=== PATIENT | female | born 2000 | race Caucasian/White ===

== ENCOUNTER 2020-04-01 10:36 | Outpatient (CLI) | payer OTHER, SELFPAY ==
[2020-04-02 14:58] LABS: SARS-CoV-2 RNA PCR Negative
== END 2020-04-01 10:37 | disposition home or self-care (01) ==
PROVIDERS: PCP Family Medicine; Visit Provider Family Medicine
DX: Z20.828 Contact with and (suspected) exposure to other viral communicable diseases (principal)
CPT/HCPCS: 87635; C9803; U0003

== ENCOUNTER → 2021-06-06 08:35 | Outpatient (CLI) | payer OTHER, SELFPAY ==
--- NOTE | ~2021-06-06 | XR_ITS ---
EXAMINATION: XR foot LT min 3V DATE: 06/06/2021 09:14 INDICATION: Left foot pain TECHNIQUE: Dorsoplantar, lateral, and 2 oblique views of the left foot were obtained. COMPARISON: None. FINDINGS: There is no fracture, dislocation, or subluxation. The bones, soft tissues, and joint space s are normal. IMPRESSION: 1. No acute osseous abnormality. Reviewed, dictated and finalized at location A.
== END ==
PROVIDERS: PCP Family Medicine; Visit Provider Nurse Practitioner Family
DX: M79.672 Pain in left foot (principal); S99.922A Unspecified injury of left foot, initial encounter
CPT/HCPCS: 73630

== ENCOUNTER → 2021-08-19 09:04 | Outpatient (CLI) | payer OTHER, SELFPAY ==
[2021-08-19 22:40] LABS: SARS-CoV-2 RNA PCR Positive
== END ==
PROVIDERS: PCP Family Medicine; Visit Provider Nurse Practitioner Family
DX: U07.1 COVID-19 (principal)
CPT/HCPCS: C9803; U0003; U0005

== ENCOUNTER 2021-11-11 06:14 | Emergency (ER) | payer OTHER, SELFPAY ==
--- NOTE | ~2021-11-11 | XR_ITS ---
EXAMINATION: XR chest 2V DATE: 11/11/2021 06:27 INDICATION: Chest pain TECHNIQUE: PA and lateral views of the chest are obtained. COMPARISON: None available FINDINGS: The lungs are free of acute opacities. There is no pleural effusion or pneumothorax. The ca rdiomediastinal silhouette is normal. The visualized bones and soft tissues are unremarkable. IMPRESSION: 1. No acute cardiopulmonary abnormality. Reviewed, dictated and finalized at location A.
[2021-11-11 06:16] VITALS: BP 139/84; PULSE 78; RESP 18; TEMP 37; O2SAT 100
--- NOTE | 2021-11-11 06:19 | ECG_ITS ---
Measurements Intervals [place] Rate: 86 P: 32 MO: 148 QRS: 26 QRSD: 82 T: 30 QT: 334 QTc: 401 Interpretive Statements SINUS RHYTHM WITH MARKED SINUS ARRHYTHMIA BASELINE ARTIFACT NORMAL ECG NO PREVIOUS ECG AVAILABLE FOR COMPARISON Electronically Signed On 11-11-2021 16:54:05 CDT by Christiano Kwan M.D.
[2021-11-11 06:28] VITALS: BP 132/98; PULSE 91; RESP 22; TEMP 36.8; O2SAT 100
[2021-11-11 06:41] LABS: Basophils Absolute Auto 0.1 K/mm3 (0.0-0.1); Basophils Percent Auto 0.6 % (0.2-1.2); Eosinophils Absolute Auto 0.1 K/mm3 (0-0.3); Eosinophils Percent Auto 0.9 % (0-4.4); Hemoglobin 12.1 g/dL (12.0-15.0); Immature Granulocyte Absolute 0.02 K/mm3 (0.00-0.031); Immature Granulocyte Percent A 0.2 % (0-0.5); Lymphocytes Absolute Auto 1.65 K/mm3 (0.9-3.2); Lymphocytes Percent Auto 19.2 % (18.3-44.2); Mean Corpuscular HGB Conc 31.8 g/dl (32-36); Mean Corpuscular Hemoglobin 28.3 pg (26-34); Mean Corpuscular Volume 88.8 fl (80-100); Mean Platelet Volume 10.9 fl (7.4-10.4); Monocytes Absolute Auto 0.5 K/mm3 (0.1-0.6); Neutrophils Absolute Auto 6.3 K/mm3 (1.3-6.7); Neutrophils Percent Auto 73.1 % (45.5-73.1); Platelet Count Result 328 k/mm3 (150-375); Red Blood Count 4.28 M/mm3 (4.2-5.4); Red Cell Distribution Width 12.6 % (11.5-14.5); White Blood Count 8.6 K/mm3 (4.5-10.0)
[2021-11-11] MEDS: ASPIRIN 81 MG CHEWABLE TABLET 324 MG PO (06:43)
[2021-11-11 06:54] LABS: INR 1.1; Prothrombin Time 13.5 Seconds (11.1-14.7)
[2021-11-11 06:55] LABS: Partial Thromboplastin Time 28.6 SECONDS (22.3-36.8)
[2021-11-11 06:59] LABS: Alanine Aminotransferase 12 U/L (4-35); Albumin Level 4.3 g/dL (3.5-5.1); Alkaline Phosphatase 58 U/L (38-126); Anion Gap 8 mmol/L (8-16); Aspartate Amino Transferase 19 U/L (14-36); Bilirubin,Total 0.4 mg/dL (0.2-1.3); Blood Urea Nitrogen 8 mg/dL (7-17); Carbon Dioxide 25 mmol/L (22-30); Chloride 104 mmol/L (98-107); Estimated CRCL calculation 122 ml/min; Estimated Glomerular Filt Rate > 60; Glucose 102 mg/dL (65-110); Lipase 97 U/L (23-300); Potassium 3.8 mmol/L (3.4-5.0); Sodium 137 mmol/L (137-145)
[2021-11-11 07:11] LABS: Troponin I < 0.012 ng/mL (0.000-0.034)
--- NOTE | 2021-11-11 07:16 | ED.CHESTPAIN ---
HPI - Chest Pain General Chief Complaint: Chest Pain Stated Complaint: chest pain, sob Time Seen by Provider: 11/11/21 06:55 History of Present Illness HPI narrative: 21-year-old female presents secondary some atypical chest pain. Patient donated blood yesterday and after she got home she states she is feeling a little weak. This is a second time she donated blood. She had no syncopal episode. She went to bed last night and she states that she was sleeping on her stomach and woke up and had some discomfort in the midportion of her chest. The like a burning type sensation. She states that it eventually subsided and she was able to go back to sleep. She went to work this morning and still was not feeling completely back to normal and subsequently came to the [facility] for evaluation. She can no history of any cardiac abnormalities. She has no history of any exertional chest pain or dyspnea. Denies any history of reflux type symptoms. No family history of premature cardiac abnormalities. MD complaint: chest pain Related Data Home Medications Medication Instructions Recorded Confirmed levonorgestrel-ethinyl estradiol 1 tablet PO DAILY 07/11/21 07/11/21 0.1 mg-20 mcg tablet Allergies Allergy/AdvReac Type Severity Reaction Status Date / Time No Known Allergies Allergy Verified 11/11/21 06:19 Review of Systems Review of Systems: CONSTITUTIONAL: Denies fever, chills, or sweats. EYES: Denies visual changes, redness, or discharge. ENT: Denies rhinorrhea, congestion, sore throat, or otalgia. CARDIOVASCULAR: Denies palpitations, or edema. RESPIRATORY: Denies cough or dyspnea. GASTROINTESTINAL: Denies abdominal pain, nausea, vomiting, or diarrhea. GENITOURINARY: Denies dysuria or hematuria. SKIN: Denies rash or itching. MUSCULOSKELETAL: Denies back pain, joint pain, or myalgia. NEUROLOGIC: Denies headache, numbness, or weakness. PSYCHIATRIC: Denies anxiety or depression. [facility] Past Medical History Medical History BMI 35.0-35.9,adult Dietary counseling and surveillance (03/27/17) Encounter for general adult medical examination without abnormal findings Family History Family History Father Hypertension Mother Diabetes mellitus Sibling No problems noted. Social History Social History Tobacco type: e-cigarettes/vaping Second hand tobacco smoke exposure: No Alcohol intake: current Substance use: never Substance use type: does not use Additional occupation/education comments: [employer] Gender identity (if verbalized by the patient): Female Exam Narrative: APPEARANCE: Well appearing, no pain in distress, well-nourished. Head normocephalic atraumtaic. EYES: PERRLA/EOMI, conjunctivae very clear. NOSE: Normal no drainage EARS:TMS clear Nadir Larkin, with good light reflex. THROAT: Pharynx clear, no exudate. NECK: Supple. No adenopathy, no masses. RESPIRATORY: Airway patent, repsirations nonlabored. Clear to auscultation bilaterally, no rales, rhonchi, wheezing. CARDIOVASCULAR: Regular rate and rhythm without murmurs rubs or gallops. ABDOMINAL: Soft, nondistended, no hepatosplenomegally. Some mild epigastric tenderness to palpation MUSCULOSKELETAl: Moves all extremities. Strenght/ROM intact, No edema, No calf tenderness. NEURO: Alert. Cranial nerves II through XII intact. Good gait. Good coordination SKIN:: Warm, dry. Normal Color PSYCHIATRIC: Normal affect/mood, normal interaction with parents. Course Course Emergency Course: Patient had no additional probably complications while she was in emergency department. Work-up and evaluation was completely unremarkable this was all reviewed with the patient. She states she is actually feeling better at this time would like to go home and get something to eat. Vital Signs Vital signs: Vital Sign
[2021-11-11] MEDS: BELLADONNA ALK/PHENOB ELIX 10 ML, MAG HYDROX/ALUMINUM HYD/SIMETH 30 ML, LIDOCAINE HCL 2... PO (07:19)
== END 2021-11-11 09:28 | disposition home or self-care (01) ==
PROVIDERS: Emergency Medicine; Emergency Provider Emergency Medicine; PCP Family Medicine
DX: R07.89 Other chest pain (principal); F17.290 Nicotine dependence, other tobacco product, uncomplicated
CPT/HCPCS: 36415; 71046; 80053; 83690; 84484; 85025; 85610; 85730; 93005; 99284; A9270

== ENCOUNTER 2021-12-26 15:59 | Emergency (ER) | payer OTHER, SELFPAY ==
--- NOTE | ~2021-12-26 | XR_ITS ---
XR ankle LT min 3V 12/26/2021 16:32 INDICATION: Left ankle pain PROCEDURE: 4 views left ankle COMPARISON: No prior studies for comparison. FINDINGS: Fracture, dislocation or subluxation is not identified. Ankle mortise intact. There is late ral soft tissue swelling. Talar dome within normal limits. Mild lateral soft tissue swelling. No for eign bodies are identified. IMPRESSION: 1: NO ACUTE BONE OR JOINT ABNORMALITY IDENTIFIED. Reviewed, dictated and finalized at location A.
[2021-12-26 16:18] VITALS: BP 122/90; PULSE 114; RESP 16; TEMP 36.6; O2SAT 99
--- NOTE | 2021-12-26 18:31 | ED.LOWEXIN ---
HPI - Extremity Injury (Lower) General Chief Complaint: Extremity Injury, Lower Stated Complaint: left ankle injury Time Seen by Provider: 12/26/21 18:07 Source: patient Mode of arrival: ambulatory Limitations: no limitations History of Present Illness HPI Narrative: Patient is a 21 y/o female who presents to the ED with c/o left ankle pain. Patient reports that she was walking down wooden steps just prior to arrival when the wooden step broke causing her to roll her ankle. She sustained an inversion injury to her left ankle and complains of pain and swelling to her lateral left ankle. She has been able to ambulate but has pain with this. Denies any numbness, tingling, weakness. No other injuries. No head injury, loss of consciousness. Related Data Home Medications Medication Instructions Recorded Confirmed levonorgestrel-ethinyl estradiol 1 tablet PO DAILY 07/11/21 12/21/21 0.1 mg-20 mcg tablet Allergies Allergy/AdvReac Type Severity Reaction Status Date / Time No Known Allergies Allergy Verified 12/21/21 07:59 Review of Systems Review of Systems: CONSTITUTIONAL: Denies fever. GASTROINTESTINAL: Denies abdominal pain. SKIN: Reports swelling to L lateral ankle. MUSCULOSKELETAL: Reports L lateral ankle pain. Denies back pain. NEUROLOGIC: Denies HI, LOC, tingling, numbness, or weakness. All systems reviewed & are unremarkable except as noted in HPI and below PMFSH Past Medical History Medical History (Updated 12/26/21 @ 18:44 by Maura Lechuga PA-C) BMI 32.0-32.9,adult BMI 35.0-35.9,adult BMI greater than 30 Dietary counseling and surveillance (03/27/17) Encounter for general adult medical examination without abnormal findings Surgical History Surgical History (Updated 12/26/21 @ 18:38 by Maura Lechuga PA-C) No pertinent past surgical history Family History Family History Father Hypertension Mother Diabetes mellitus Sibling Migraine Social History Social History Tobacco type: e-cigarettes/vaping Second hand tobacco smoke exposure: No Alcohol intake: current Substance use: never Substance use type: does not use Additional occupation/education comments: [employer] Gender identity (if verbalized by the patient): Female Exam Narrative: GENERAL: Well appearing, well-nourished, non-toxic, in no acute distress. HEAD: Normocephalic, atraumatic. NECK: Supple. No adenopathy, no masses. RESPIRATORY: Airway patent, respirations nonlabored. CARDIOVASCULAR: Regular rate and rhythm without murmurs, rubs, or gallops. Peripheral pulses 2+ and equal bilaterally. MUSCULOSKELETAL: Moves all extremities. Strength/ROM intact without gross deformities. TTP of L lateral malleolus inferiorly and posteriorly. Mild diffuse swelling of lateral malleolus. Minor ecchymosis forming below lateral malleolus. No TTP of L metatarsals. No TTP in L knee. Sensation intact in LLE. SKIN: Warm, dry, normal color. No rashes. NEURO: A&O X3. Speech clear. Cranial nerves II-XII grossly intact. Steady gait. No ataxic movements. PSYCHIATRIC: Appropriate mood and affect. Normal interaction. Course Vital Signs Vital signs: Vital Signs Temperature 97.8 F 12/26/21 16:18 Pulse Rate 114 H 12/26/21 16:18 Respiratory Rate 16 12/26/21 16:18 Blood Pressure 122/90 12/26/21 16:18 Pulse Oximetry 99 12/26/21 16:18 Temperature 97.8 F 12/26/21 16:18 Pulse Rate 114 H 12/26/21 16:18 Respiratory Rate 16 12/26/21 16:18 Blood Pressure 122/90 12/26/21 16:18 Pulse Oximetry 99 12/26/21 16:18 MDM - Extremity Injury (Lower) MDM Narrative Medical decision making narrative: Patient presented to ED with report of left lateral ankle pain status post inversion injury that occurred just prior to arrival. Vital signs stable upon arrival, patient mildly tachycardic, likely due to pain. Patient
== END 2021-12-26 19:12 | disposition home or self-care (01) ==
PROVIDERS: Emergency Provider Emergency Medicine; PCP Family Medicine
DX: S93.402A Sprain of unspecified ligament of left ankle, initial encounter (principal); F17.290 Nicotine dependence, other tobacco product, uncomplicated; X50.1XXA Overexertion from prolonged static or awkward postures, initial encounter
CPT/HCPCS: 73610; 99283

== ENCOUNTER 2022-01-02 14:11 | Outpatient (CLI) | payer OTHER, SELFPAY ==
--- NOTE | ~2022-01-02 | XR_ITS ---
EXAMINATION: XR ankle LT 2V, XR foot LT 2V DATE: 01/02/2022 14:31 INDICATION: Left foot and ankle sprain presenting with lateral sided pain and swelling TECHNIQUE: 1. Anteroposterior and lateral view of the left ankle were obtained. 2. Dorsoplantar and lateral views of the left foot were obtained. COMPARISON: 12/26/2021 FINDINGS: Alignment of the left foot and ankle is normal. No fracture. Joint spaces are well maintained. Soft t issue swelling about the lateral malleolus. Large left ankle joint effusion with increased density an terior to the tibiotalar joint line. IMPRESSION: 1. Left ankle joint effusion. No acute osseous abnormality at the left foot or ankle. Reviewed, dictated and finalized at location B. IMPRESSION: 1. Left ankle joint effusion. No acute osseous abnormality at the left foot or ankle.
== END 2022-01-02 14:12 ==
LOC: MICIMG 14:14
PROVIDERS: PCP Family Medicine; Visit Provider Nurse Practitioner Family
DX: M25.472 Effusion, left ankle (principal); M25.572 Pain in left ankle and joints of left foot
CPT/HCPCS: 73600; 73620

== ENCOUNTER 2022-11-03 12:20 | Emergency (ER) | payer OTHER, SELFPAY ==
[2022-11-03 12:28] VITALS: BP 134/63; PULSE 77; RESP 20; TEMP 37; O2SAT 100
--- NOTE | 2022-11-03 12:37 | ED.SKABFB ---
HPI - Skin/Abscess/Foreign Bdy General Chief complaint: Skin/Abscess/Foreign Body Stated complaint: Rash on right shoulder History of Present Illness HPI narrative: PRESENTSWITH RASH TO RIGHT SIDE OF NECK PATIENT NOTICED IT SEVERAL DAYS AGO ITCHES AT TIMES DRY FLAKY AREAS TO LEFT SIDE OF NECK Related Data Home Medications Medication Instructions Recorded Confirmed levonorgestrel-ethinyl estradiol 1 tablet PO DAILY 07/11/21 11/03/22 0.1 mg-20 mcg tablet Allergies Allergy/AdvReac Type Severity Reaction Status Date / Time No Known Allergies Allergy Verified 11/03/22 12:35 Review of Systems Review of Systems: CONSTITUTIONAL: DENIES FEVER, CHILLS, OR SWEATS. EYES: DENIES VISUAL CHANGES, REDNESS, OR DISCHARGE. ENT: DENIES RHINORRHEA, CONGESTION, SORE THROAT, OR OTALGIA. CARDIOVASCULAR: DENIES CHEST PAIN, PALPITATIONS, OR EDEMA. RESPIRATORY: DENIES COUGH OR DYSPNEA. GASTROINTESTINAL: DENIES ABDOMINAL PAIN, NAUSEA, VOMITING, OR DIARRHEA. GENITOURINARY: DENIES DYSURIA OR HEMATURIA. SKIN: DENIES RASH OR ITCHING. MUSCULOSKELETAL: DENIES BACK PAIN, JOINT PAIN, OR MYALGIA. NEUROLOGIC: DENIES HEADACHE, NUMBNESS, OR WEAKNESS. PSYCHIATRIC: DENIES ANXIETY OR DEPRESSION. [facility] Past Medical History Medical History (Updated 11/03/22 @ 12:41 by GIL Patiño) BMI 32.0-32.9,adult BMI 35.0-35.9,adult BMI greater than 30 Chest tightness Dietary counseling and surveillance (03/27/17) Encounter for general adult medical examination without abnormal findings Hearing loss Surgical History Surgical History (Updated 02/06/22 @ 14:57 by Elsi Crawley) H/O eye surgery Right eye 2001 Family History Family History Father Hypertension Mother Diabetes mellitus Sibling Migraine Social History Social History (Updated 02/06/22 @ 14:57 by Elsi Crawley) Smoking status: Current every day smoker Tobacco type: e-cigarettes/vaping Second hand tobacco smoke exposure: No Alcohol intake: unknown Substance use: never Substance use type: does not use Living arrangements: with family Occupation/Education: occupation Additional occupation/education comments: [employer] Gender identity (if verbalized by the patient): Female Comments AT TIME OF SIGNATURE, AGREE WITH NURSING PAST MEDICAL, SURGICAL, SOCIAL AND FAMILY HISTORY. THERE IS NO RELEVANT FAMILY HISTORY PERTINENT TO THE PRESENTING COMPLAINT Exam Narrative: GENERAL: WELL-APPEARING, WELL-NOURISHED, AND IN NO ACUTE DISTRESS. HEAD: NORMOCEPHALIC, ATRAUMATIC. EYES: PERRLA AND EOMI. ENT: NARES CLEAR, NO RHINORRHEA OR EPISTAXIS. MUCOUS MEMBRANES MOIST. NECK: SUPPLE. CHEST: CLEAR TO AUSCULTATION. NO RESPIRATORY DISTRESS. HEART: REGULAR RATE AND RHYTHM. NO MURMUR HEARD. NORMAL PERIPHERAL PULSES. ABDOMEN: SOFT, NONTENDER, NONDISTENDED, NORMAL ACTIVE BOWEL SOUNDS. EXTREMITIES: NORMAL RANGE OF MOTION. NO EDEMA. SKIN: WARM, DRY, FLAT DRY FLAKY AREAS ,MULTIPLE IN VARIOUS SIZES AND SHAPES CONSISTENT WITH FUNGAL DERMATITIS NEURO: NO FOCAL DEFICITS. ALERT AND ORIENTED X3. ALIZA COMA SCALE EYE OPENING: SPONTANEOUS 4 ALIZA COMA SCALE MOTOR: OBEYS COMMANDS 6 ALIZA COMA SCALE VERBAL: ORIENTED 5 ALIZA COMA SCALE TOTAL 15 Course Course Level of Care: Express Care Visit Vital Signs Vital signs: Vital Signs Temperature 37.0 C 11/03/22 12:28 Pulse Rate 77 11/03/22 12:28 Respiratory Rate 20 11/03/22 12:28 Blood Pressure 134/63 11/03/22 12:28 Pulse Oximetry 100 11/03/22 12:28 Oxygen Delivery Room Air 11/03/22 12:28 Temperature 37.0 C 11/03/22 12:28 Pulse Rate 77 11/03/22 12:28 Respiratory Rate 20 11/03/22 12:28 Blood Pressure 134/63 11/03/22 12:28 Pulse Oximetry 100 11/03/22 12:28 Oxygen Delivery Room Air 11/03/22 12:28 Discharge Plan Discharge Clinical Impression: Fungal dermatitis Patient Disposition: Home, Self-Care Condit
== END 2022-11-03 12:45 | disposition home or self-care (01) ==
PROVIDERS: Emergency Provider Nurse Practitioner Family; PCP Family Medicine
DX: B36.9 Superficial mycosis, unspecified (principal); F17.290 Nicotine dependence, other tobacco product, uncomplicated
CPT/HCPCS: 99213; G0463

== ENCOUNTER 2023-05-30 16:04 | Emergency (ER) | payer OTHER, SELFPAY ==
[2023-05-30 16:12] VITALS: BP 128/65; PULSE 94; RESP 16; TEMP 36.8; O2SAT 96
--- NOTE | 2023-05-30 16:16 | ED.GENADULT ---
HPI - General Adult General Chief complaint: Headache Stated complaint: Headache Time Seen by Provider: 05/30/23 16:15 Source: patient, RN notes reviewed and old records reviewed Mode of arrival: ambulatory Limitations: no limitations History of Present Illness HPI narrative: 23 year old female who presents to [facility] care with complaints of headache pain for the past 4 days which has increased in intensity over the past4 hours and worse above her left eye which is sharp at times. Patient denies any history of headaches or history of any migraines. Patient reports some photosensitivity, some nausea with no emesis, denies any symptoms of cough or sinus congestion or drainage., denies any vision changes or any neuro deficits. complaint: headache Onset (ago): day(s) (4) Location: head (frontal above left eye especially) Severity scale (1-10): 9 Quality: aching and sharp Pain Consistency: constant Treatments prior to arrival: NSAID Related Data Home Medications Medication Instructions Recorded Confirmed levonorgestrel-ethinyl estradiol 1 tablet PO DAILY 07/11/21 05/12/23 0.1 mg-20 mcg tablet Allergies Allergy/AdvReac Type Severity Reaction Status Date / Time No Known Allergies Allergy Verified 03/26/23 10:37 Review of Systems Review of Systems: CONSTITUTIONAL: Denies fever, chills, or sweats. EYES: Denies visual changes, redness, or discharge.photophobia ENT: Denies rhinorrhea, congestion, sore throat, or otalgia. CARDIOVASCULAR: Denies chest pain, palpitations, or edema. RESPIRATORY: Denies cough or dyspnea. GASTROINTESTINAL: Denies abdominal pain,positive for nausea,no vomiting, or diarrhea. GENITOURINARY: Denies dysuria or hematuria. SKIN: Denies rash or itching. MUSCULOSKELETAL: Denies back pain, joint pain, or myalgia. NEUROLOGIC: Positive for headache sharp especially to left forehead,no numbness, or weakness. PSYCHIATRIC: Denies anxiety or depression. All systems reviewed & are unremarkable except as noted in HPI and below PMFSH Past Medical History Medical History BMI 32.0-32.9,adult BMI 33.0-33.9,adult BMI 35.0-35.9,adult BMI greater than 30 Chest tightness Dietary counseling and surveillance (03/27/17) Encounter for general adult medical examination without abnormal findings Hearing loss Surgical History Surgical History H/O eye surgery Right eye 2001 Family History Family History Father Hypertension Mother Diabetes mellitus Sibling Migraine Social History Social History Smoking status: Current every day smoker Tobacco type: e-cigarettes/vaping Second hand tobacco smoke exposure: No Alcohol intake: current Substance use: never Substance use type: does not use Lack of Transportation: No Lack of Food: Never True Current Housing: I Have Housing Concerned About Future Housing: No Difficulty Paying Gas/Electric Bills: No Difficulty Paying for Meds: No Currently Unemployed: No Education: High School Diploma/GED Difficulty w/ Childcare or Family Care: No Living arrangements: with family Occupation/Education: occupation Additional occupation/education comments: [employer] Gender identity (if verbalized by the patient): Female Comments At time of signature, agree with nursing past medical, surgical, social and family history. There is no relevant family history pertinent to the presenting complaint Exam Narrative: GENERAL: Well-appearing, well-nourished, and in no acute distress. HEAD: Normocephalic, atraumatic. EYES: PERRLA and EOMI.photophobia ENT: Nares clear, no rhinorrhea or epistaxis. Mucous membranes moist.TM's normal throat pink with no lesions or exudates or swelling NECK: Supple.no lymphadenopathy, no
[2023-05-30] MEDS: KETOROLAC (*BKC) 60 MG/2 ML VIAL IM (16:28)
== END 2023-05-30 17:20 | disposition short-term general hospital (02) ==
PROVIDERS: Emergency Provider Registered Nurse; PCP Family Medicine
DX: R51.9 Headache, unspecified (principal); Z20.822 Contact with and (suspected) exposure to COVID-19; F17.290 Nicotine dependence, other tobacco product, uncomplicated
CPT/HCPCS: 87426; 87804; 96372; 99213; C9803; G0463; J1885

== ENCOUNTER 2023-05-30 17:58 | Emergency (ER) | payer OTHER, SELFPAY ==
[2023-05-30 17:58] VITALS: BP 132/75; PULSE 103; RESP 14; TEMP 36.9; O2SAT 99
--- NOTE | 2023-05-30 18:46 | PC.NURSE ---
On 05/30/23, the student, [NAMAN OLIVARES ], provided care and completed [facility] documentation on this patient. I have reviewed the student's documentation and agree with the findings.
[2023-05-30] MEDS: SODIUM CHLORIDE 0.9% IV 1,000 ML 999 ML IV CONT (19:00)
[2023-05-30] MEDS: METOCLOPRAMIDE HCL INJ 10 MG/2 ML VIAL IV PUSH (19:03)
[2023-05-30] MEDS: MORPHINE SULFATE (*CRX) 2 MG/ML INJ IV PUSH (19:03)
--- NOTE | 2023-05-30 19:06 | ED.HA ---
HPI - Headache General Chief Complaint: Headache Stated Complaint: headache Time Seen by Provider: 05/30/23 18:23 Source: patient and family Mode of arrival: ambulatory Limitations: no limitations History of Present Illness HPI Narrative: this is a 23-year-old female that is having headache and some throbbing behind her left eye with no nausea or vomiting headache is rated at about 8/10, with no chest pain no shortness of breath no fever chills no nuchal rigidity. Patient was seen at urgent care and received Toradol with minimal relief and was advised to present to the emergency department for further evaluation. MD elicited complaint: headache and migraine Onset description: gradually Location: left, frontal and occipital Severity: moderate Pain scale (0-10): 8 Quality & Timing: throbbing and pulsatile Related Data Home Medications Medication Instructions Recorded Confirmed levonorgestrel-ethinyl estradiol 1 tablet PO DAILY 07/11/21 05/12/23 0.1 mg-20 mcg tablet Allergies Allergy/AdvReac Type Severity Reaction Status Date / Time No Known Allergies Allergy Verified 03/26/23 10:37 Review of Systems Review of Systems: All systems reviewed & are unremarkable except as noted in HPI and below PMFSH Past Medical History Medical History BMI 32.0-32.9,adult BMI 33.0-33.9,adult BMI 35.0-35.9,adult BMI greater than 30 Chest tightness Dietary counseling and surveillance (03/27/17) Encounter for general adult medical examination without abnormal findings Hearing loss Surgical History Surgical History H/O eye surgery Right eye 2002 Family History Family History Father Hypertension Mother Diabetes mellitus Sibling Migraine Social History Social History Smoking status: Current every day smoker Tobacco type: e-cigarettes/vaping Second hand tobacco smoke exposure: No Alcohol intake: current Substance use: never Substance use type: does not use Lack of Transportation: No Lack of Food: Never True Current Housing: I Have Housing Concerned About Future Housing: No Difficulty Paying Gas/Electric Bills: No Difficulty Paying for Meds: No Currently Unemployed: No Education: High School Diploma/GED Difficulty w/ Childcare or Family Care: No Living arrangements: with family Occupation/Education: occupation Additional occupation/education comments: [employer] Gender identity (if verbalized by the patient): Female Exam Const: General: healthy appearing and no acute distress Nutritional Appearance: well nourished Orientation/consciousness: patient oriented x3 Limitations: no limitations HENMT: Head: normal to inspection Face and sinus: normal facial exam Eyes: Conjunctivae: conjunctivae normal Pupils: Equal, round and reactive pupils present Neck: Neck: normal visual inspection Chest: Chest palpation & inspection: normal inspection of the chest Resp: Effort & Inspection: normal respiratory effort Auscultation: clear to auscultation bilaterally Cardio: Rate: regular rate Rhythm: regular rhythm GI: GI Palp: Yes Soft to palpation Auscultation: normal bowel sounds Urinary Catheter: Urinary Catheter: patent and draining Back/Spine/Pelvis: Back: no CVA tenderness Skin: General skin exam: normal color Neuro: General: patient oriented x3 Cranial nerves: Yes Nystagmus not present Extrem: General: normal to inspection Psych: Mental Status: mental status grossly normal Affect: normal affect Course Course Emergency Course: Patient has improved, with some morphine and Reglan along with IV fluids and advised patient to follow with her primary care physician for further evaluation treatment. Vital Signs Vital signs: Vi
== END 2023-05-30 20:20 | disposition home or self-care (01) ==
PROVIDERS: Emergency Provider Emergency Medicine; PCP Family Medicine
DX: R51.9 Headache, unspecified (principal); F17.219 Nicotine dependence, cigarettes, with unspecified nicotine-induced disorders
CPT/HCPCS: 96361; 96374; 96375; 99284; J2270; J2765; J7030

== ENCOUNTER 2023-06-17 13:54 | Outpatient (CLI) | payer OTHER, SELFPAY ==
--- NOTE | ~2023-06-17 | US_ITS ---
EXAMINATION: US OB transvaginal DATE: 06/17/2023 14:22 INDICATION: First trimester dating TECHNIQUE: Real-time pelvic transabdominal and transvaginal ultrasound was performed. COMPARISON: None. FINDINGS: The uterus measures 8.0 x 5.2 x 6.2 cm. There is an intrauterine gestational sac. There is a 6 mm x 5 mm x 9 mm hypoechoic area adjacent to the gestational sac. A yolk sac is identified. heart motion is identified measuring 141 beats per minute (bpm) by M-mode Doppler. The crown r ump length measures 8 mm, which correlates with an estimated gestational age of 6 weeks and 5 day(s) (+/-) 4 day(s). The right ovary measures 3.0 x 2.2 x 3.3 cm. The left ovary measures 3.0 x 1.8 x 2.7 cm. There is nor mal vascular flow in the ovaries. There is no free fluid in the pelvis. IMPRESSION: 1. Live intrauterine with an estimated gestational age of 6 weeks and 5 day(s) (+/-) 4 day( s) and an estimated delivery date of 02/05/2024. 2. Small subchorionic hematoma. Reviewed, dictated and finalized at location L. DRY MACHINE TENDER IMPRESSION: 1. Live intrauterine with an estimated gestational age of 6 weeks and 5 day(s) (+/-) 4 day(s) and an estimated delivery date of 02/05/2024. 2. Small subchorionic hematoma.
== END 2023-06-17 13:55 ==
PROVIDERS: PCP Nurse Practitioner; Visit Provider Nurse Practitioner
DX: Z36.87 Encounter for antenatal screening for uncertain dates (principal)
CPT/HCPCS: 76817

== ENCOUNTER 2023-07-15 10:14 | Outpatient (CLI) | payer OTHER, SELFPAY ==
--- NOTE | ~2023-07-15 | US_ITS ---
EXAMINATION: US OB limited DATE: 07/15/2023 10:32 INDICATION: Follow-up subchorionic hematoma TECHNIQUE: Real-time transabdominal and transvaginal obstetric ultrasound. FINDINGS: No prior studies for comparison. The uterus measures 12 x 5.4 x 3.2 cm. There is an intrauterine gestational sac, with pole iden tified. The crown rump length measures 4.12 cm. No evidence for subchorionic hemorrhage on current s tudy. heart tones are identified measuring 174 BPM. IMPRESSION: 1. SL IUP with an EGA of 10 weeks, 5 days (EDC by ultrasound ultrasound of 02/05/2024). Appropriate in terval growth. 2: Interval resolution of subchorionic hematoma. Reviewed, dictated and finalized at location B. ERER ELECTRONIC IMPRESSION: 1. SL IUP with an EGA of 10 weeks, 5 days (EDC by ultrasound ultrasound of 02/04). Appropriate interval growth. 2: Interval resolution of subchorionic hematoma.
== END 2023-07-15 10:15 ==
PROVIDERS: PCP Advanced Practice Midwife; Visit Provider Advanced Practice Midwife
DX: O36.8910 Maternal care for other specified fetal problems, first trimester, not applicable or unspecified (principal); Z3A.10 10 weeks gestation of pregnancy
CPT/HCPCS: 76815

== ENCOUNTER 2023-07-22 07:29 | Emergency (ER) | payer OTHER, SELFPAY ==
[2023-07-22 07:42] VITALS: BP 122/76; PULSE 94; RESP 19; TEMP 36.6; O2SAT 100
--- NOTE | 2023-07-22 07:55 | ED.NAVMDI ---
HPI - Nausea/Vomiting/Diarrhea General Chief complaint: Nausea/Vomiting/Diarrhea Stated complaint: n/v 12 weeks . Time Seen by Provider: 07/22/23 07:38 History of Present Illness HPI Narrative: patient is a 23-year-old female who is 12 weeks in gestation who presents to the ER with nausea and vomiting. Patient has had persistent morning sickness during the 12 weeks of her . She is on Reglan at home and does not seem to be helping. 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 She was told if she cannot keep down food or water or that she should come to the ER. She is cared for by Dr. Sandoval hays. Patient is a . She reports 8 lb weight loss. Related Data Home Medications Medication Instructions Recorded Confirmed levonorgestrel-ethinyl estradiol 1 tablet PO DAILY 07/11/21 06/03/23 0.1 mg-20 mcg tablet Allergies Allergy/AdvReac Type Severity Reaction Status Date / Time No Known Allergies Allergy Verified 07/22/23 07:40 Review of Systems Review of Systems: All systems reviewed & are unremarkable except as noted in HPI and below Constitutional: Constitutional: Reports no additional constitutional complaints ENT: Reports system reviewed and no additional complaints, except as documented Cardiovascular: Cardiovascular: Reports no additional cardiovascular complaints Respiratory: Respiratory: Reports no additional respiratory complaints Gastrointestinal: Gastrointestinal: Denies abdominal pain, Denies diarrhea, Reports nausea and Reports vomiting Genitourinary: Genitourinary: Reports no additional female genitourinary complaints Musculoskeletal: Musculoskeletal: Reports no additional musculoskeletal complaints [facility] Past Medical History Medical History BMI 32.0-32.9,adult BMI 33.0-33.9,adult BMI 35.0-35.9,adult BMI greater than 30 Chest tightness Dietary counseling and surveillance (03/27/17) Encounter for general adult medical examination without abnormal findings Hearing loss Surgical History Surgical History H/O eye surgery Right eye 2001 Family History Family History Father Hypertension Mother Diabetes mellitus Sibling Migraine Social History Social History (Reviewed 06/03/23 @ 12:51 by SANDY Villegas Smoking status: Current every day smoker Tobacco type: e-cigarettes/vaping Second hand tobacco smoke exposure: No Alcohol intake: current Substance use: never Substance use type: does not use Lack of Transportation: No Lack of Food: Never True Current Housing: I Have Housing Concerned About Future Housing: No Difficulty Paying Gas/Electric Bills: No Difficulty Paying for Meds: No Currently Unemployed: No Education: High School Diploma/GED Difficulty w/ Childcare or Family Care: No Living arrangements: with family Occupation/Education: occupation Additional occupation/education comments: [employer] Gender identity (if verbalized by the patient): Female Exam Narrative: GENERAL: Well-appearing, well-nourished, and in no acute distress. HEAD: Normocephalic, atraumatic. ENT: Mucous membranes moist. NECK: Supple. CHEST: Clear to auscultation. No respiratory distress. HEART: Regular rate and rhythm. Normal peripheral pulses. ABDOMEN: Soft, nontender, nondistended. EXTREMITIES: Normal range of motion. No edema. NEURO: Alert and oriented x3. PSYCH: Normal mood and affect. Course Course Emergency Course: Patient feels improved with Zofran and is resting comfortably. Blood work reassuring but urinalysis with persistent infection. Discussed with Dr. Grijalva. She would like the patient to receive some IV ceftriaxone and then follow-up in 2 days for a weight check in ketone check. Patient is also to be discharg
[2023-07-22] MEDS: SODIUM CHLORIDE 0.9% IV 1,000 ML 999 ML IV CONT (08:14)
[2023-07-22] MEDS: ONDANSETRON INJ 4 MG/2 ML VIAL IV PUSH (08:15)
[2023-07-22 08:20] VITALS: BP 119/89; PULSE 73; RESP 19; O2SAT 100
[2023-07-22 08:29] LABS: Basophils Percent Auto 0.4 % (0.2-1.2); Eosinophils Absolute Auto 0.1 K/mm3 (0-0.3); Eosinophils Percent Auto 0.6 % (0-4.4); Immature Granulocyte Absolute 0.04 K/mm3 (0.00-0.031); Immature Granulocyte Percent A 0.4 % (0-0.5); Lymphocytes Absolute Auto 1.15 K/mm3 (0.9-3.2); Mean Corpuscular HGB Conc 33.3 g/dl (32-36); Mean Corpuscular Hemoglobin 28.1 pg (26-34); Mean Corpuscular Volume 84.2 fl (80-100); Mean Platelet Volume 10.5 fl (7.4-10.4); Monocytes Absolute Auto 0.5 K/mm3 (0.1-0.6); Neutrophils Absolute Auto 7.8 K/mm3 (1.3-6.7); Neutrophils Percent Auto 81.6 % (45.5-73.1); Platelet Count Result 290 k/mm3 (150-375); Red Blood Count 4.63 M/mm3 (4.2-5.4); Red Cell Distribution Width 12.7 % (11.5-14.5); White Blood Count 9.6 K/mm3 (4.5-10.0)
[2023-07-22 08:40] LABS: Alanine Aminotransferase 11 U/L (6-35); Albumin Level 4.4 g/dL (3.5-5.1); Alkaline Phosphatase 59 U/L (38-126); Anion Gap 8 mmol/L (8-16); Aspartate Amino Transferase 21 U/L (14-36); Bilirubin,Total 0.5 mg/dL (0.2-1.3); Blood Urea Nitrogen 6 mg/dL (7-17); Calcium 9.8 mg/dL (8.4-10.2); Carbon Dioxide 24 mmol/L (22-30); Chloride 104 mmol/L (98-107); Estimated CRCL calculation 134 ml/min; Estimated Glomerular Filt Rate > 60; Glucose 92 mg/dL (65-110); Potassium 3.7 mmol/L (3.4-5.0); Sodium 136 mmol/L (137-145)
[2023-07-22 09:07] VITALS: BP 106/72; PULSE 73; RESP 18; O2SAT 100
[2023-07-22 09:30] LABS: Amorphous Sediment Urine Present; Appearance Urine Turbid (Clear); Bacteria Urine 4+ /hpf; Bilirubin Urine 2+ (Negative); Blood Urine 1+ (Negative); Color Urine Dark Yellow (Yellow); Glucose Urine UA Negative (Negative); Hyaline Casts Urine Present /lpf; Ketones Urine 3+ mg/dL (Negative); Leukocyte Esterase Ur 1+ LEU/UL (Negative); Mucus Urine Present /lpf; Need Manual Microscopic Reviewed; Nitrate Urine Negative (Negative); Protein Urine 2+ mg/dL (Negative); RBC Urine 51-100 /hpf (0-2); Specific Grav Ur 1.029 (1.001-1.035); Squamous Epithelial Cell Urine Moderate /hpf (Few); WBC Urine 21-50 /hpf
[2023-07-22 09:33] LABS: Add Urine Microscopic? YES
[2023-07-22 09:59] VITALS: BP 102/62; PULSE 74; RESP 18; O2SAT 99
== END 2023-07-22 10:14 | disposition home or self-care (01) ==
PROVIDERS: Emergency Provider Emergency Medicine; PCP Advanced Practice Midwife
DX: O23.41 Unspecified infection of urinary tract in pregnancy, first trimester (principal); N39.0 Urinary tract infection, site not specified; O21.0 Mild hyperemesis gravidarum; O99.331 Smoking (tobacco) complicating pregnancy, first trimester; F17.290 Nicotine dependence, other tobacco product, uncomplicated; Z3A.12 12 weeks gestation of pregnancy
CPT/HCPCS: 36415; 80053; 81001; 85025; 87086; 87088; 96361; 96374; 96375; 99284; J0696; J2405; J7030

== ENCOUNTER 2023-09-10 09:44 | Outpatient (CLI) | payer OTHER, SELFPAY ==
--- NOTE | ~2023-09-10 | US_ITS ---
EXAMINATION: US OB /maternal detail DATE: 09/10/2023 10:30 INDICATION: anatomic survey. TECHNIQUE: Real-time ultrasound of the pelvis was performed. COMPARISON: Ultrasound 07/15/2023, 06/17/2023 FINDINGS: There is a single living fetus in vertex presentation. The placenta is posterior, 2.6 cm from the ce rvix. The cervical length is 2.5 cm on transabdominal imaging, which is normal. heart rate is 1 53 beats per minute (bpm). The amniotic fluid volume is subjectively normal The following biometric data were obtained: Biparietal diameter (BPD): 4.5 cm; head circumference (HC): 16.6 cm; abdominal circumference (AC): 13 .6 cm; femur length (FL): 3.0 cm. These measurements are concordant. Estimated weight is 276 g +/- 41 g, which correlates with the 62nd percentile when 02/05/24 is u sed as estimated date of delivery. As single measurements, these parameters are each equal to the following estimated gestational ages: BPD: 19 weeks 4 days. HC: 19 weeks 2 days. AC: 19 weeks 1 days. FL: 19 weeks 1 days. estimated gestational age based solely on measurements from this exam is 19 weeks 2 days +/- 1 weeks 2 days. The cerebral ventricles, cerebellum, cisterna magna, nuchal fold, lip, and visualized portions of the spine are normal. The heart is normal. The diaphragm, stomach, kidneys, and bladder are normal. Ther e are two umbilical arteries to yield a 3-vessel cord. The cord insertion is normal. IMPRESSION: 1. Single living fetus in vertex presentation. 2. Estimated weight is 276 g +/- 41 g, which correlates with the 62nd percentile when 02/05/24 is used as estimated date of delivery. This date was set by ultrasound on 06/17/2023. 3. Normal anatomic survey. Reviewed, dictated and finalized at location A. ARY DIRECTOR IMPRESSION: 1. Single living fetus in vertex presentation. 2. Estimated weight is 276 g +/- 41 g, which correlates with the 62nd pe rcentile when 02/05/24 is used as estimated date of delivery. This date was set by ultrasound on 06/17/2023. 3. Normal anatomic survey.
== END 2023-09-10 09:45 ==
PROVIDERS: PCP Advanced Practice Midwife; Visit Provider Advanced Practice Midwife
DX: Z36.9 Encounter for antenatal screening, unspecified (principal)
CPT/HCPCS: 76805

== ENCOUNTER 2023-09-19 15:12 | Outpatient (CLI) | payer OTHER, SELFPAY ==
--- NOTE | ~2023-09-19 | US_ITS ---
EXAMINATION: US OB follow up DATE: 09/19/2023 15:43 INDICATION: Cervical shortening. Unspecified trimester. TECHNIQUE: Real-time transabdominal and transvaginal ultrasound of the pelvis was performed. COMPARISON: Ultrasound 09/10/2023, 06/17/2023 FINDINGS: There is a single living fetus in breech presentation. The placenta is posterior, 5.2 cm from the ce rvix. heart rate is 158 beats per minute (bpm). The amniotic fluid volume is subjectively andrew l. Transvaginal images demonstrate a cervical length of 3.7 cm which is normal. IMPRESSION: 1. Single living fetus in breech presentation. 2. Normal cervical length. Reviewed, dictated and finalized at location E. TITUTIONAL LAW PROFESSOR
== END 2023-09-19 15:13 ==
LOC: MICIMG 15:14
PROVIDERS: PCP Advanced Practice Midwife; Visit Provider Advanced Practice Midwife
DX: O26.879 Cervical shortening, unspecified trimester (principal); Z3A.00 Weeks of gestation of pregnancy not specified
CPT/HCPCS: 76816

== ENCOUNTER 2023-11-04 11:18 | Outpatient (CLI) | payer OTHER, SELFPAY ==
--- NOTE | ~2023-11-04 | US_ITS ---
EXAMINATION: US OB follow up DATE: 11/04/2023 11:46 INDICATION: Size greater than dates during second trimester TECHNIQUE: Real-time ultrasound of the pelvis was performed. The interpreting radiologist was not pre sent for the study. COMPARISON: 10/09/2023 FINDINGS: There is a single living fetus in vertex presentation. The placenta is posterior. car diac activity and movement are noted. heart rate is 156 beats per minute (bpm). The amnio tic fluid index is 15.8 cm which is normal (normal range: 9.7 cm to 22.3 cm). The following biometric data were obtained: Biparietal diameter (BPD): 6.9 cm; head circumference (HC): 24.9 cm; abdominal circumference (AC): 21 .7 cm; femur length (FL): 4.9 cm. These measurements are concordant. Estimated weight is 940 g +/- 141 g, which correlates with the 28th percentile when 02/05/2024 i s used as estimated date of delivery. As single measurements, these parameters are each equal to the following estimated gestational ages w ith ranges of +/- 2 standard deviations: BPD: 27 weeks 4 days ( 25 weeks 3 days - 29 weeks 6 days). HC: 27 weeks 0 days ( 25 weeks 0 days - 29 weeks 1 days). AC: 26 weeks 1 days ( 24 weeks 0 days - 28 weeks 2 days). FL: 26 weeks 4 days ( 24 weeks 3 days - 28 weeks 5 days). estimated gestational age based solely on measurements from this exam is 26 weeks 6 days +/- 1 weeks 6 days. IMPRESSION: 1. Single living fetus in vertex presentation. 2. Estimated weight is 940 g +/- 141 g, which correlates with the 28th percentile when 4 is used as estimated date of delivery. Reviewed, dictated and finalized at location F. IMPRESSION: 1. Single living fetus in vertex presentation. 2. Estimated weight is 940 g +/- 141 g, which correlates with the 28th pe rcentile when 02/05/2024 is used as estimated date of delivery.
== END 2023-11-04 11:19 ==
LOC: MICIMG 11:19
PROVIDERS: PCP Advanced Practice Midwife; Visit Provider Advanced Practice Midwife
DX: O36.63X0 Maternal care for excessive fetal growth, third trimester, not applicable or unspecified (principal)
CPT/HCPCS: 76816

== ENCOUNTER 2023-12-06 11:42 | Outpatient (CLI) | payer OTHER, SELFPAY ==
--- NOTE | ~2023-12-06 | US_ITS ---
EXAMINATION: US OB follow up DATE: 12/06/2023 12:08 INDICATION: Expected size greater than expected for estimated gestational age TECHNIQUE: Real-time ultrasound of the pelvis was performed. The interpreting radiologist was not pre sent for the study. COMPARISON: 11/04/2023 FINDINGS: There is a single living fetus in vertex presentation. The placenta is posterior and not low-lying. heart rate is 152 beats per minute (bpm). The amniotic fluid index is 12.4 cm, which is normal . (5th%-95%: 8.8-23.8 cm at 31 weeks estimated gestational age). Cervical length of 4.8 cm. The following biometric data were obtained: BPD: 8.2 cm -> 33 weeks 1 days Head circumference: 28.6 cm -> 31 weeks 3 days Abdominal circumference: 26.7 cm -> 30 weeks 6 days Femur length: 6.3 cm -> 32 weeks 3 days These measurements are concordant. Head circumference to abdominal circumference ratio: 1.07 (normal range 0.96-1.14). Estimated weight: 1789 g (+/-) 268 g or 3 lbs. 15 oz. (+/-) 9 oz. IMPRESSION: 1. Single living fetus in vertex presentation with heart rate of 152 bpm. 2. Normal amniotic fluid index of 12.4 cm. 3. Estimated weight is 47th percentile by Hadlock criteria when 02/05/2024 is used as the estima donny date of delivery (MAGGIE). Please correlate with clinical information or earlier ultrasounds for mos t accurate MAGGIE. Reviewed, dictated and finalized at location A. IMPRESSION: 1. Single living fetus in vertex presentation with heart rate of 152 bpm. 2. Normal amniotic fluid index of 12.4 cm. 3. Estimated weight is 47th percentile by Hadlock criteria when 02/05/2024 is used as the estimated date of delivery (MAGGIE). Please correlate with clinica l information or earlier ultrasounds for most accurate MAGGIE.
== END 2023-12-06 11:43 ==
PROVIDERS: PCP Advanced Practice Midwife; Visit Provider Advanced Practice Midwife
DX: O36.63X0 Maternal care for excessive fetal growth, third trimester, not applicable or unspecified (principal); Z3A.00 Weeks of gestation of pregnancy not specified
CPT/HCPCS: 76816

== ENCOUNTER 2023-12-27 15:29 | Outpatient (RCR) | payer OTHER, MEDICAID, SELFPAY ==
[2023-12-27 16:17] VITALS: BP 107/68; PULSE 119
== END 2024-03-26 23:59 | disposition home or self-care (01) ==
LOC: ANHOBOP 15:29
PROVIDERS: PCP Advanced Practice Midwife; Visit Provider Advanced Practice Midwife
DX: O36.8930 Maternal care for other specified fetal problems, third trimester, not applicable or unspecified (principal); Z3A.34 34 weeks gestation of pregnancy
CPT/HCPCS: 59025

== ENCOUNTER 2024-01-15 10:19 | Outpatient (CLI) | payer OTHER, MEDICAID, SELFPAY ==
--- NOTE | ~2024-01-15 | US_ITS ---
EXAMINATION: US OB follow up DATE: 01/15/2024 10:43 INDICATION: Size greater than dates. TECHNIQUE: Real-time ultrasound of the pelvis was performed. COMPARISON: Ultrasound 12/06/2023, 06/17/2023 FINDINGS: There is a single living fetus in vertex presentation. The placenta is posterior. The cervical lengt h is 3.6 cm on transabdominal images, which is normal. heart rate is 164 beats per minute (bpm) . The amniotic fluid index is 9.6 cm, which is normal. The following biometric data were obtained: Biparietal diameter (BPD): 9.4 cm; head circumference (HC): 33.0 cm; abdominal circumference (AC): 32 .8 cm; femur length (FL): 7.1 cm. These measurements are concordant. Estimated weight is 3076 g +/- 461 g, which correlates with the 55th percentile when 02/05/24 is used as estimated date of delivery. As single measurements, these parameters are each equal to the following estimated gestational ages: BPD: 38 weeks 2 days. HC: 37 weeks 4 days. AC: 36 weeks 5 days. FL: 36 weeks 4 days. estimated gestational age based solely on measurements from this exam is 37 weeks 2 days +/- 2 weeks 4 days. IMPRESSION: 1. Single living fetus in vertex presentation. 2. Estimated weight is 3076 g +/- 461 g, which correlates with the 55th percentile when 4 is used as estimated date of delivery. This date was set by ultrasound on 06/17/2023. Reviewed, dictated and finalized at location A. IMPRESSION: 1. Single living fetus in vertex presentation. 2. Estimated weight is 3076 g +/- 461 g, which correlates with the 55th percentile when 02/05/24 is used as estimated date of delivery. This date was se t by ultrasound on 06/17/2023.
== END 2024-01-15 10:20 ==
LOC: MICIMG 10:20
PROVIDERS: PCP Advanced Practice Midwife; Visit Provider Advanced Practice Midwife
DX: O36.63X0 Maternal care for excessive fetal growth, third trimester, not applicable or unspecified (principal)
CPT/HCPCS: 76816

== ENCOUNTER 2024-02-05 18:58 | Inpatient (IN) | payer OTHER, MEDICAID, SELFPAY ==
[2024-02-05] VITALS (11 sets, daily range): BP systolic 99–128; BP diastolic 67–85; PULSE 98–119; TEMP 36.6; BMI 36.8
--- NOTE | 2024-02-05 19:18 | WPDANESEPP ---
Anes - Eval Pre Procedure Procedure: Labor epidural Date/Time: 02/05/24 19:18 Surgeon: jesús Preop Diagnosis: Abdominal pain with contractions Pre Op Diagnosis: IOL Patient Data Age: 24 Gender: F Height: Weight: Allergies Allergy/AdvReac Type Severity Reaction Status Date / Time No Known Allergies Allergy Verified 01/10/24 14:28 Home Medications Medication Instructions Recorded Confirmed Type ondansetron 4 mg disintegrating 4 mg PO Q6H PRN nausea and 07/22/23 01/10/24 Rx tablet vomiting #10 tabs vits no.126-ferrous fum 1 tablet PO DAILY 01/10/24 01/10/24 History 28 mg iron-folic acid 800 mcg tablet (Classic ) : gestational age HCG: positive Patient hx anesthesia problems: none Family hx anesthesia problems: none Results Review: All pre-operative results and documents have been reviewed as part of the pre-operative evaluation. [facility] Past Medical History Medical History Anxiety and depression BMI 32.0-32.9,adult BMI 33.0-33.9,adult BMI 35.0-35.9,adult BMI greater than 30 Chest tightness Dietary counseling and surveillance (03/27/17) Encounter for general adult medical examination without abnormal findings Hearing loss Obesity Surgical History Surgical History H/O eye surgery Right eye 2001 Family History Family History Father Hypertension Mother Diabetes mellitus Sibling Migraine Grandparent Cancer Grandparent ALS (amyotrophic lateral sclerosis) Social History Social History Smoking status: Current every day smoker Tobacco type: e-cigarettes/vaping Second hand tobacco smoke exposure: No Alcohol intake: current Substance use: never Substance use type: does not use Lack of Transportation: No Lack of Food: Never True Current Housing: I Have Housing Concerned About Future Housing: No Difficulty Paying Gas/Electric Bills: No Difficulty Paying for Meds: No Currently Unemployed: No Education: High School Diploma/GED Difficulty w/ Childcare or Family Care: No Living arrangements: with family Occupation/Education: occupation Additional occupation/education comments: [employer] Gender identity (if verbalized by the patient): Female Spiritual care concerns: No Exam Day of Procedure 02/05/24 19:18 Patient weight: obese
[2024-02-05 19:52] LABS: Basophils Percent Auto 0.3 % (0.2-1.2); Eosinophils Absolute Auto 0.1 K/mm3 (0-0.3); Eosinophils Percent Auto 0.7 % (0-4.4); Hematocrit 36.1 % (37.0-47.0); Hemoglobin 11.4 g/dL (12.0-15.0); Immature Granulocyte Absolute 0.08 K/mm3 (0.00-0.031); Immature Granulocyte Percent A 0.6 % (0-0.5); Lymphocytes Absolute Auto 1.85 K/mm3 (0.9-3.2); Lymphocytes Percent Auto 13.2 % (18.3-44.2); Mean Corpuscular HGB Conc 31.6 g/dl (32-36); Mean Corpuscular Hemoglobin 25.8 pg (26-34); Mean Corpuscular Volume 81.7 fl (80-100); Mean Platelet Volume 11.2 fl (7.4-10.4); Monocytes Percent Auto 6.8 % (2.6-8.5); Neutrophils Percent Auto 78.4 % (45.5-73.1); Platelet Count Result 313 k/mm3 (150-375); Red Blood Count 4.42 M/mm3 (4.2-5.4); Red Cell Distribution Width 14.8 % (11.5-14.5)
[2024-02-05] MEDS: miSOPROStol 25 MCG TABLET BUCCAL (20:14)
[2024-02-05 20:53] LABS: HIV 1/2 Ab P24 Ag Result Negative (Negative)
[2024-02-06] VITALS (100 sets, daily range): BP systolic 72–156; BP diastolic 31–94; PULSE 25–192; RESP 13–20; TEMP 36.3–36.7; O2SAT 87–100
[2024-02-06] MEDS: miSOPROStol 25 MCG TABLET 50 MCG VAGINAL ×2 (00:12→04:04)
--- NOTE | 2024-02-06 07:38 | WPDOBADMIT ---
Obstetrics - Admit Note Admission Note: record reviewed. No pertinent additions to the history and/or any subsequent changes in the physical findings that are not consistent with the expected course of the were found. Additions to the history and/or subsequent changes in the physical findings follow. Here for MIL. Cytotec overnight. Now /-2 anterior. AROM with clear fluid. Will begin Pitocin. FHTs cat I
[2024-02-06] MEDS: LACTATED RINGERS 1,000 ML 125 ML IV CONT ×2 (08:46→13:15)
[2024-02-06] MEDS: OXYTOCIN 30 UNITS/NS 500 ML 30 UNITS/500 ML BAG 6 UNITS IV CONT (09:13)
[2024-02-06] MEDS: fentaNYL CITRATE INJ (*CRX) 100 MCG/2 ML VIAL 50 MCG IV PUSH (12:29)
[2024-02-06] MEDS: ONDANSETRON INJ 4 MG/2 ML VIAL IV PUSH ×2 (13:58→20:33)
[2024-02-06 14:37] LABS: Rapid Plasma Reagin Non-Reactive (NonReactive)
[2024-02-06] MEDS: SODIUM CHLORIDE 0.9% IV 300 ML 600 ML I-UTERINE (18:38)
[2024-02-06] MEDS: FAMOTIDINE 20 MG/2 ML VIAL IV PUSH (20:34)
--- NOTE | 2024-02-06 20:34 | PM.IMHP ---
H&P: HPI History of Present Illness Date/Time: 02/06/24 20:34 Chief Complaint: intolerance of labor Narrative: The patient is a 24-year-old 1 at 40-,1/7 weeks admitted for medical induction of labor. Patient has progressed to 5cm and the heart tones have had repetitive variables initially responsive to position change amniotic fluid bolus. Patient had a short run of late decelerations that resolved as well. Patient continue to have variables and a 2nd amniotic fluid bolus was done. The head to prolonged decelerations lasting 2minutes and 3minutes. It was recommended to undergo section for intolerance of labor. Procedure was discussed with the patient and she agrees to proceed. labs B positive, rubella immune, RPR negative, hepatitis-B surface antigen negative, HIV negative, group B strep negative. The patient has elected to sign over the infant to her sister for adoption. Review of Systems Review of Systems: not repeated day of surgery; patient states no changes in status PMF Past Medical History Medical History (Updated 02/06/24 @ 20:40 by Hawa Grijalva MD) Anxiety and depression BMI greater than 30 Hearing loss Surgical History Surgical History H/O eye surgery Right eye 2002 Family History Family History Father Hypertension Mother Diabetes mellitus Sibling Migraine Grandparent Cancer Grandparent ALS (amyotrophic lateral sclerosis) Social History Social History Smoking status: Former smoker Tobacco type: e-cigarettes/vaping Second hand tobacco smoke exposure: No Alcohol intake: current Substance use: never Substance use type: does not use Do You Feel Safe in your Home?: Yes Lack of Transportation: No Lack of Food: Never True Current Housing: I Have Housing Concerned About Future Housing: No Difficulty Paying Gas/Electric Bills: No Difficulty Paying for Meds: No Currently Unemployed: No Education: High School Diploma/GED Difficulty w/ Childcare or Family Care: No Living arrangements: with family Occupation/Education: occupation Additional occupation/education comments: [employer] Gender identity (if verbalized by the patient): Female Spiritual care concerns: No Meds Home Medications and Allergies Home Medications Medication Instructions Recorded Confirmed Type ondansetron 4 mg disintegrating 4 mg PO Q6H PRN nausea and 07/22/23 02/05/24 Rx tablet vomiting #10 tabs vits no.126-ferrous fum 1 tablet PO DAILY 01/10/24 02/05/24 History 28 mg iron-folic acid 800 mcg tablet (Classic ) Allergies Allergy/AdvReac Type Severity Reaction Status Date / Time No Known Allergies Allergy Verified 02/05/24 19:46 Vital Signs Vital Signs - 24 hr 02/05/24 20:45 02/05/24 21:00 02/05/24 21:15 Temperature Pulse Rate 98 99 102 H Respiratory Rate Blood Pressure 119/72 127/85 128/74 Pulse Oximetry 02/05/24 21:30 02/05/24 21:45 02/05/24 22:00 Temperature 97.9 F Pulse Rate 117 H 102 H 100 Respiratory Rate Blood Pressure 115/75 128/71 126/74 Pulse Oximetry 02/05/24 23:00 02/06/24 00:00 02/06/24 02:01 Temperature Pulse Rate 111 H 98 97 Respiratory Rate Blood Pressure 114/71 119/76 119/63 Pulse Oximetry 02/06/24 03:00 02/06/24 04:00 02/06/24 05:00 Temperature 98 F Pulse Rate 78 80 87 Respiratory Rate Blood Pressure 107/62 117/74 123/78 Pulse Oximetry 02/06/24 06:00 02/06/24 07:00 02/06/24 07:31 Temperature 97.7 F Pulse Rate 75 96 Respiratory Rate 16 Blood Pressure 116/76 131/88 Pulse Oximetry 02/06/24 08:02 02/06/24 09:00 02/06/24 09:13 Temperature 97.6 F Pulse Rate 95 90 Respiratory Rate 16 Bl
[2024-02-06] MEDS: ACETAMINOPHEN 500 MG TABLET 1000 MG PO (20:35)
[2024-02-06] MEDS: ceFAZolin 2 GM/D5W 50 ML 2 GM/50 ML BAG IVPB (20:51)
[2024-02-06] MEDS: AZITHROMYCIN 500 MG/NS 250 ML 500 MG/250 ML BAG 250 MG IVPB (20:51)
--- NOTE | 2024-02-06 21:44 | P.PCNOB_ITS ---
OB - Delivery Note Procedure Delivery date: 02/06/24 Pre-op diagnosis: Decelerations ( intolerance of labor) Post-op Diagnosis: Same Induction method: AROM, Per Misoprostol Protocol and Per Pitocin Protocol Delivery monitor: Internal FHT and Internal Uterine Procedure Performed: Primary Primary branch: low cervical, transverse Surgeon: Hawa Grijalva MD Anesthesia type: Spinal Description of Procedure/Findings: The patient was taken to the operating room and placed under anesthesia in the dorsal supine position with a leftward tilt. Once anesthesia was deemed adequate she was prepped and draped in the usual sterile fashion. Pfannenstiel skin incision was made with a scalpel and carried down to the underlying layer of fascia which was nicked in the midline and carried laterally using Crook scissors. O[facility]ner was used to tent the fascia which was then dissected off using sharp dissection the rectus muscles were in the midline and the peritoneum tented and entered with Metzenbaum scissors. The incision was extended laterally using blunt traction. The vesicouterine peritoneum was grasped with a Peon and entered with Metzenbaum sent extended laterally the bladder flap is created digitally. The Jeevan O was retractor is placed. The lower uterine segment was incised in a transverse fashion with the scalpel and extended with blunt traction. The fluid is clear. the infant's head is brought up into the incision and noted to be in the left occiput posterior position. The vertex was delivered while guiding the vertex and the life enrichment assistant applying fundal pressure. The remainder of the infant was delivered. Cord is noted at the shoulder as it is delivered and is around the body. The cord was clamped and cut the infant handed to the waiting nursery nurse. Cord gases and cord blood were taken. The placenta was removed using manual traction. The uterus was cleared of all clots and debris. The uterine incision was closed using 0 Monocryl in a running locked fashion with the same suture used to imbricate. Good hemostasis is noted. The gutters are irrigated and the incision again inspected and noted to be hemostatic. The fascia closed using 0 Vicryl in a running fashion. Subcutaneous tissue is irrigated made hemostatic using Bovie cautery. Skin is closed using 4-0 Vicryl in a subcuticular fashion. Dermaflex was placed over the incision and after that has dried the Mepilex dressing is placed. Sponge, needle, and instrument counts are correct per the OR staff. Patient was given Ancef and Zithromax prior to skin incision. Patient was taken to recovery in stable condition. Specimen: Yes ( Placenta) Estimated Blood Loss: 300 Drains: Yes ( Kowalski) Packing: No Complications: No immediate complications Condition: Stable Disposition: [place] Baby Date of : 02/06/24 Weeks of gestation at delivery: 40 (40 08/18) Infant gender: Male Weight (pounds): 7 Weight (ounces): 2 presentation: vertex position: Left Occiput Posterior Placenta delivery description: Spontaneous Cord Vessel Description: 3 Vessels, Delayed Cord Clamping and Around Body ( and shoulder) score one minute: 9 score five minutes: 9
--- NOTE | 2024-02-06 21:50 | PM.OBDSVD ---
DS: Admitting Diagnosis Discharge Date 02/08/2024 <Kevin Ochoa MD - Last Filed: 02/08/24 08:05> Admitting Diagnosis intrauterine at 40-,1/7 weeks medical induction of labor <Hawa Grijalva MD - Last Filed: 02/06/24 21:52> DS: Discharge Diagnosis Discharge Diagnosis (1) intolerance to labor, delivered, current hospitalization: Code(s): O77.9 - Labor and delivery complicated by stress, unspecified <Hawa Grijalva MD - Last Filed: 02/06/24 21:52> Status: Acute <Hawa Grijalva MD - Last Filed: 02/06/24 21:52> (2) Status post primary low transverse section: Code(s): Z98.891 - History of uterine scar from previous surgery <Hawa Grijalva MD - Last Filed: 02/06/24 21:52> Status: Acute <Hawa Grijalva MD - Last Filed: 02/06/24 21:52> OB - DS: Summary OB Procedures : Ultrasound <Hawa Grijalva MD - Last Filed: 02/06/24 21:52> OB Procedures Intrapartum: low cervical, transverse <Hawa Grijalva MD - Last Filed: 02/06/24 21:52> OB Procedures: : None <Hawa Grijalva MD - Last Filed: 02/06/24 21:52> Peripartum Data Infant Delivery Method: Section <Hawa Grijalva MD - Last Filed: 02/06/24 21:52> Procedures: Procedures Operation Date: 02/06/24 20:15 <No data on this case meets the specified criteria> <Hawa Grijalva MD - Last Filed: 02/06/24 21:52> complications: none <Hawa Grijalva MD - Last Filed: 02/06/24 21:52> Status at Discharge Functional status at discharge: independent ambulation <Hawa Grijalva MD - Last Filed: 02/06/24 21:52> Overall status at discharge: patient is progressing back to baseline <Hawa Grijalva MD - Last Filed: 02/06/24 21:52> Time Spent with Patient Time attestation: Total time spent providing and/or coordinating discharge services: <Hawa Grijalva MD - Last Filed: 02/06/24 21:52> DS: Data Data Completed and Pending Labs on day of discharge: Labs from last 24 hours 02/05/24 19:48 RPR Non-reactive <Hawa Grijalva MD - Last Filed: 02/06/24 21:52> Discharge Plan Discharge Attending physician on discharge: Hawa Grijalva <Hawa Grijalva MD - Last Filed: 02/06/24 21:52> Hawa Grijalva <Kevin Ochoa MD - Last Filed: 02/08/24 08:05> Discharging Clinician: Kevin Agustin <Hawa Grijalva MD - Last Filed: 02/06/24 21:52> Kevin Agustin <Kevin Ochoa MD - Last Filed: 02/08/24 08:05> Anticipated Discharge Date/Time: 02/09/24 21:51 <Hawa Grijalva MD - Last Filed: 02/06/24 21:52> Patient Disposition: Home, Self-Care <Hawa Grijalva MD - Last Filed: 02/06/24 21:52> Activity: may shower, may drive after 2 weeks and pelvic rest <Hawa rGijalva MD - Last Filed: 02/06/24 21:52> may shower, may drive after 2 weeks and pelvic rest <Kevin Ochoa MD - Last Filed: 02/08/24 08:05> Diet: regular <Hawa Grijalva MD - Last Filed: 02/06/24 21:52> regular <Kevin Ochoa MD - Last Filed: 02/08/24 08:05> Wound Care Instructions: keep dressing dry <Hawa Grijalva MD - Last Filed: 02/06/24 21:52> keep dressing dry <Kevin Ochoa MD - Last Filed: 02/08/24 08:05> Patient Instructions: Antibiotic Form <Hawa Grijalva MD - Last Filed: 02/06/24 21:52> Stand Alone Forms: General Discharge Information <Hawa Grijalva MD - Last Filed: 02/06/24 21:52> Follow-up/Referrals: Kierra Enamorado CNM [Certified Nurse [employer] Inspector Repairer] - 1 Week ( and 6 week) <Hawa Grijalva MD - Last Filed: 02/06/24 21:52> Discharge Medications: No Action ondansetron 4 mg tablet,disi
[2024-02-06] MEDS: OXYTOCIN 30 UNITS/NS 500 ML 30 UNITS/500 ML BAG 125 UNITS IV CONT (22:15)
[2024-02-07] VITALS (7 sets, daily range): BP systolic 102–123; BP diastolic 48–71; PULSE 60–89; RESP 16–20; TEMP 36.5–37.2; O2SAT 98–100
[2024-02-07] MEDS: HYDROcodone/acetaminophen (*CRX) 5-325 MG TABLET 1 TAB PO (01:20)
[2024-02-07] MEDS: KETOROLAC 15 MG/ML VIAL (*BKC) IV PUSH ×4 (02:04→20:23)
[2024-02-07] MEDS: ACETAMINOPHEN 325 MG TABLET 650 MG PO ×4 (02:05→20:22)
[2024-02-07] MEDS: LIDOCAINE 5% PATCH 1 PATCH TRANSDERM (02:36)
[2024-02-07] MEDS: DEXTROSE 5%/0.45% SOD CHL 1,000 ML 125 ML IV CONT (02:56)
--- NOTE | 2024-02-07 03:07 | OBPPTRN ---
Patient transferred to post room # via ( 276 ) Oriented to unit, room, information board, rooming in, admission packet and security measures. Patient verbalizes understanding. Baby with adoptive parents in room #277
[2024-02-07 05:15] LABS: Basophils Absolute Auto 0.1 K/mm3 (0.0-0.1); Basophils Percent Auto 0.2 % (0.2-1.2); Hematocrit 36.3 % (37.0-47.0); Hemoglobin 10.2 g/dL (12.0-15.0); Immature Granulocyte Absolute 0.14 K/mm3 (0.00-0.031); Immature Granulocyte Percent A 0.7 % (0-0.5); Lymphocytes Absolute Auto 1.47 K/mm3 (0.9-3.2); Lymphocytes Percent Auto 6.9 % (18.3-44.2); Mean Corpuscular HGB Conc 28.1 g/dl (32-36); Mean Corpuscular Hemoglobin 26.1 pg (26-34); Mean Corpuscular Volume 92.8 fl (80-100); Mean Platelet Volume 11.3 fl (7.4-10.4); Monocytes Absolute Auto 1.4 K/mm3 (0.1-0.6); Monocytes Percent Auto 6.6 % (2.6-8.5); Neutrophils Absolute Auto 18.1 K/mm3 (1.3-6.7); Neutrophils Percent Auto 85.6 % (45.5-73.1); Platelet Count Result 253 k/mm3 (150-375); Red Blood Count 3.91 M/mm3 (4.2-5.4); Red Cell Distribution Width 15.1 % (11.5-14.5); White Blood Count 21.2 K/mm3 (4.5-10.0)
--- NOTE | 2024-02-07 07:34 | PM.OBPNVD ---
OB - PN: Subj Subjective Date/time seen: 02/07/24 07:20 Interval history: Doing well. Urinating without difficulty. Denies passing any large clots. Denies dizziness with ambulating. Tolerating po food and fluids. Has tried breast pumping. Plans adoption. Baby in room with pt's sister (adpotive parent). Patient comments: incisional pain OB - PN: Obj Data Labs 02/07/24 05:05 Labs: Laboratory Results - last 24 hr 02/05/24 02/07/24 19:48 05:05 WBC 21.2 H RBC 3.91 L Hgb 10.2 L Hct 36.3 L MCV 92.8 D MCH 26.1 MCHC 28.1 L RDW 15.1 H Plt Count 253 MPV 11.3 H Immature Gran % (Auto) 0.7 H Neut % (Auto) 85.6 H Lymph % (Auto) 6.9 L [place] % (Auto) 6.6 Eos % (Auto) 0.0 Baso % (Auto) 0.2 Lymph # (Auto) 1.47 [place] # (Auto) 1.4 H Eos # (Auto) 0.0 Baso # (Auto) 0.1 Abs Immat Gran (auto) 0.14 H Absolute Neuts (auto) 18.1 H Absolute Nucleated RBC 0.000 Nucleated RBC % 0.0 RPR Non-reactive OB - PN A/P Assessment and Plan (1) Delivery by section: Status: Acute (2) with adoption planned: Qualifiers: Qualified Code(s): Z34.93 - Encounter for supervision of normal , unspecified, third trimester Code(s): Z34.90 - Encounter for supervision of normal , unspecified, unspecified trimester Status: Acute Assessment and Plan: Plan day: 1 Plan: routine care Time Spent With Patient Time: Total time spent is greater than 50% in coordination of care (as documented) at patient's floor/unit and/or counseling patient: Review of Systems Review of Systems: All systems reviewed & are unremarkable except as noted in HPI and below Exam Const: General: cooperative, no acute distress and awake Orientation/consciousness: patient oriented x3 Limitations: no limitations Resp: Effort & Inspection: normal respiratory effort and able to speak in complete sentences Auscultation: clear to auscultation bilaterally Cardio: Rate: regular rate Peripheral pulses: Peripheral pulses 2+ throughout GI: Inspection: normal to inspection Auscultation: normal bowel sounds : General: Yes bladder normal to palpation Speculum Exam - Vagina: vaginal bleeding Bimanual exam- vagina & uterus: bladder normal to palpation OB/external & speculum: vaginal bleeding Other: Fundus firm Skin: General skin exam: normal color Other: Incision Neuro: General: patient oriented x3 Cognition (Neuro): normal cognition Speech: normal speech Extrem: General: normal to inspection Psych: Appearance: grossly normal Mental Status: mental status grossly normal Speech and movement: Normal speech and movement present Affect: normal affect Attitude: cooperative Thought process: Normal thought process present
[2024-02-07] MEDS: SIMETHICONE 80 MG TAB.CHEW PO ×3 (08:29→16:39)
[2024-02-07] MEDS: MULTIVIT/MIN/PREN/FOL AC/IRON TABLET 1 TAB PO (08:30)
--- NOTE | 2024-02-07 10:20 | PC.NURSE ---
Breast pump provided due to patient's request. Patient has a Spectra pump that she used overnight, but after speaking with Kierra Enamorado CNM she desires to use a hospital grade Medela pump. Educated patient that her Spectra pump is adequate to help stimulate her breast for good milk production and to pump colostrum for baby. Baby is being adopted by the patient's sister and she wants to pump and provide breastmilk for infant. Instructions given on cleaning, care, usage, that there should be no pain, pumping schedule for milk production, collection, and storage of human milk. Patient was assessed for correct placement, flange size, to pump for comfort and nipple stretching/stimulation for adequate milk production every 3 hours (8 times in 24 hours) 1-2 times at night. Mother voiced understanding of the education shared along with mom/baby guide and the pump measurement. Reported to the Primary RN.
--- NOTE | 2024-02-07 14:16 | WPDANLDPN2 ---
Anes-Prog Note L&D Date/Time: 02/07/24 14:16 Comfortable throughout: section Neuraxial method: spinal Epidural/Spinal procedure site: clean & non-tender Neuro status: Neuro function grossly intact. Cardiovascular status: normal Respiratory status: normal Airway patency: baseline Mental status: baseline Post-Op hydration status: normal Vital Signs: Last Vital Signs Temp 37.0 C 02/07/24 12:27 Pulse 73 02/07/24 12:27 Resp 20 02/07/24 12:27 BP 123/71 02/07/24 12:27 Pulse Ox 100 02/07/24 12:27 O2 Del Method Room Air 02/07/24 01:00 Pain score (VAS): 3/10 I/O: Intake & Output 02/06/24 02/07/24 02/07/24 23:59 07:59 15:59 Intake Total 200 400 Output Total 1600 600 Balance -1400 -200 Post-procedural complaints: none Patient feedback: Patient satisfied with anesthetic care.
--- NOTE | 2024-02-07 14:16 | WPDANLDNPN2 ---
Anes-Prog Note L&D-Neuraxial Date/Time: 02/07/24 14:16 Neuraxial medications: intrathecal PF morphine Opiod-related complaints: pruritis mild, no treatment Patient feedback: Patient satisfied with post-operative pain management.
[2024-02-07] MEDS: DOCUSATE SODIUM 100 MG CAPSULE PO (14:29)
--- NOTE | 2024-02-07 15:31 | PCCCNOTE ---
Met with pt. today who confirms arrangements have been made to adopt baby boy. Identified adoptive parents are pt.'s sister Aide and Aide's . All paperwork has been put in chart. Pt. was offered resources and supports information but denies any at this time. Baby will likely discharge on Saturday and is cleared to be released to Aide. Paperwork on chart. Pt. and Aide deny any other needs.
[2024-02-08] MEDS: LIDOCAINE 5% PATCH 1 PATCH TRANSDERM (02:19)
[2024-02-08] MEDS: IBUPROFEN 600 MG TABLET PO ×3 (02:19→15:05)
[2024-02-08] MEDS: ACETAMINOPHEN 325 MG TABLET 650 MG PO ×3 (02:19→15:05)
[2024-02-08 08:00] VITALS: BP 120/75; PULSE 100; RESP 16; TEMP 36.7; O2SAT 100
--- NOTE | 2024-02-08 08:03 | P.PNOB_ITS ---
OB - PN: Subj Subjective Date/time seen: 02/08/24 08:03 Interval history: Doing well. Urinating without difficulty. Denies passing any large clots. Denies dizziness with ambulating. Tolerating po food and fluids. Has tried breast pumping. Plans adoption. Baby in room with pt's sister (adpotive parent). Patient comments: no complaints and pain well controlled [place] baby status: doing well OB - PN: Obj Data Labs 02/07/24 05:05 OB - PN A/P Plan day: 2 Plan: routine care, discharge home and follow up 6 weeks (4) Time Spent With Patient Time: Total time spent is greater than 50% in coordination of care (as documented) at patient's floor/unit and/or counseling patient: Time with patient: less than 15 minutes Exam Const: General: cooperative, healthy appearing and comfortable Nutritional Appearance: average body habitus Orientation/consciousness: oriented to person, oriented to place and oriented to time Resp: Effort & Inspection: normal respiratory effort Cardio: Rate: regular rate Rhythm: regular rhythm Heart sounds: S1 normal heart sound present and S2 normal heart sound present GI: Inspection: normal to inspection and incision (cdi)
[2024-02-08] MEDS: SIMETHICONE 80 MG TAB.CHEW PO ×2 (09:23→15:05)
[2024-02-08] MEDS: MULTIVIT/MIN/PREN/FOL AC/IRON TABLET 1 TAB PO (09:23)
[2024-02-08] MEDS: DOCUSATE SODIUM 100 MG CAPSULE PO (09:23)
[2024-02-10 09:57] VITALS: BP 127/81; PULSE 79; RESP 18; TEMP 36.3; O2SAT 100
== END 2024-02-08 15:17 | disposition home or self-care (01) | DRG 788 ==
LOC: ANHLDR 02-06 21:52 → ANHOB2 02-08 11:45 → ANHLDR 02-10 13:06 → ANHOB2 02-10 13:06
PROVIDERS: Admitting Provider Obstetrics & Gynecology Gynecology; PCP Family Medicine; Referring Provider Advanced Practice Midwife; Visit Provider Obstetrics & Gynecology
PROC: 10D00Z1 Extraction of Products of Conception, Low, Open Approach (ICD-10-PCS; CPT 59514; principal; 2024-02-06 20:15)
DX: O76 Abnormality in fetal heart rate and rhythm complicating labor and delivery (principal); O69.82X0 Labor and delivery complicated by other cord entanglement, without compression, not applicable or unspecified; Z3A.40 40 weeks gestation of pregnancy; Z37.0 Single live birth; Z87.891 Personal history of nicotine dependence
CPT/HCPCS: 36415; 85025; 86592; 86703; 86850; 86900; 86901; A9270; G0432; J0456; J0690; J1885; J2274; J2371; J2405; J2590; J3010; J7030; J7120

== ENCOUNTER 2024-10-09 06:26 | Emergency (ER) | payer OTHER, MEDICAID, SELFPAY ==
[2024-10-09] VITALS (9 sets, daily range): BP systolic 103–143; BP diastolic 56–88; PULSE 64–76; RESP 14–16; TEMP 36.6–36.8; O2SAT 96–100
--- NOTE | 2024-10-09 07:12 | ED.WOUNDLAC ---
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 unknown last tetanus, no other injuries Related Data Home Medications ?Medication ?Instructions ?Recorded ?Confirmed ?Last Taken ?Type etonogestrel 0.12 mg-ethinyl vag ring vaginal 10/09/24 10/09/24 History estradiol 0.015 mg/24 hr vaginal ring Allergies Allergy/AdvReac Type Severity Reaction Status Date / Time morphine Allergy Intermediate Itching Verified 10/09/24 06:42 Review of Systems Review of Systems: All systems reviewed & are unremarkable except as noted in HPI and below PMFSH Past Medical History Medical History Hearing loss BMI greater than 30 Anxiety and depression Surgical History Surgical History H/O eye surgery Right eye 2002 Family History Family History Father Hypertension Mother Diabetes mellitus Sibling Migraine Grandparent Cancer Grandparent ALS (amyotrophic lateral sclerosis) Social History Social History Smoking status: Former smoker Tobacco type: e-cigarettes/vaping Second hand tobacco smoke exposure: No Alcohol intake: current Substance use: never Substance use type: does not use Do You Feel Safe in your Home?: Yes Lack of Transportation: No Lack of Food: Never True Current Housing: I Have Housing Concerned About Future Housing: No Difficulty Paying Gas/Electric Bills: No Difficulty Paying for Meds: No Currently Unemployed: No Education: High School Diploma/GED Difficulty w/ Childcare or Family Care: No Living arrangements: with family Occupation/Education: occupation Additional occupation/education comments: [employer] Gender identity (if verbalized by the patient): Female Spiritual care concerns: No Exam Narrative: General appearance: Well-developed, well-nourished Skin: Normal color, left and exam showing 1 cm laceration at the palmar side, subcutaneous, bleeding controlled Abdomen: Soft, nontender, no organomegaly, quiet bowel sounds Vascular: Normal peripheral pulses, normal capillary refill. 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 as tested, no gross motor deficit Course Vital Signs Vital signs: Vital Signs Temperature 36.8 C 10/09/24 06:27 Pulse Rate 76 10/09/24 06:27 Respiratory Rate 14 10/09/24 06:27 Blood Pressure 143/72 H 10/09/24 06:27 Pulse Oximetry 100 10/09/24 06:27 Oxygen Delivery Room Air 10/09/24 06:27 Temperature 36.8 C 10/09/24 06:27 Pulse Rate 68 10/09/24 06:44 Respiratory Rate 16 10/09/24 06:44 Blood Pressure 114/73 10/09/24 07:46 Pulse Oximetry 100 10/09/24 07:46 Oxygen Delivery Room Air 10/09/24 06:27 Procedures Laceration Laceration 1: Date: 10/09/24 Time: 08:05 Site: hand Side (If applicable): left Size (cm): 1 Description: linear Depth: simple, single layer Local Anesthetic: lidocaine 1% Amount of anesthesia used (mL): 3 Pre-repair: wound explored ====== Skin Level ====== Skin layer closed with: nylon Size (cm): 5-0 Number of sutures: 2 Technique: simple, interrupted ====== Subcutaneous Layer ====== ====== Muscle Layer ====== ====== Tendon Layer ====== Critical Care Time Critical Care Time Critical Care Time: No Discharge Plan Discharge Clinical Impression: Laceration Patient Disposition: Home, Self-Care Condition: Stable Instructions: Antibiotic Form, Laceration (ED) Additional Instructions: Remove sutures in 8 days, take Tylenol, ibuprofen as needed Return if symptoms are worsening , call your family physician for appointment, take Tylenol as as needed for aches and pain, continue home medications. Patient Language: [place] Prescriptions: New cephalexin 500 mg capsule 500 mg PO Q6H Qty: 28 0RF No Action etonogestrel-ethinyl estradiol 0.12-0.015 mg/24 hr ring VAGINAL Follow-up/Referrals: Kierra Enamorado, CNM [Primary Care Provider] - Stand Alone Forms: Work/School Release IP
[2024-10-09] MEDS: LIDOCAINE 1% LOCAL INJ 10 ML VIAL (07:49)
[2024-10-09] MEDS: ACETAMINOPHEN 500 MG TABLET 1000 MG PO (08:03)
== END 2024-10-09 08:16 | disposition home or self-care (01) ==
PROVIDERS: Emergency Provider Emergency Medicine; PCP Advanced Practice Midwife
DX: S61.412A Laceration without foreign body of left hand, initial encounter (principal); Z87.891 Personal history of nicotine dependence; W26.0XXA Contact with knife, initial encounter
CPT/HCPCS: 12001; 90471; 99283; A9270; J2003